=== PATIENT | female | born 1985 | race African-American/Black ===

== ENCOUNTER 2023-02-15 06:26 | Emergency (ER) | payer SELFPAY ==
[~2023-02-15] VITALS: Ht 154.9 cm; Wt 94.0 kg
[2023-02-15 07:00] VITALS: BP 124/44; PULSE 88; RESP 16; O2SAT 96
[2023-02-15 07:54] LABS: Vaginal Epithelial Cells Many
[2023-02-15 07:55] LABS: Vaginal Bacteria Moderate; Vaginal Clue Cells None Seen; Vaginal Trichomonas Not Present
[2023-02-15] MEDS ORDERED: cefTRIAXone SOD 1,000 MG VL IM ONE (08:15)
[2023-02-15] MEDS ORDERED: METR-344 PO (08:33)
[2023-02-15] MEDS ORDERED: DOXY-447 PO (08:33)
[2023-02-17 01:06] LABS: Chlamydia Trachomatis, NAA Negative (Negative); Neisseria gonorrhoeae, NAA Negative (Negative)
== END 2023-02-15 08:39 | disposition home or self-care (01) ==
LOC: ER 06:26
DX: N76.0 Acute vaginitis (principal); A64 Unspecified sexually transmitted disease
CPT/HCPCS: 87210; 87491; 87591; 96372; 99283; J0696